=== PATIENT | female | born 1960 | race Caucasian/White ===

== ENCOUNTER → 2024-08-03 10:50 | Outpatient (REF) | payer BC, SELFPAY | LOC: WDC 10:50 | PROVIDERS: ATTENDING PHYSICIAN Obstetrics & Gynecology Gynecology; FAMILY PHYSICIAN Internal Medicine | DX: Z78.0 Asymptomatic menopausal state (principal); Z12.31 Encounter for screening mammogram for malignant neoplasm of breast | CPT/HCPCS: 77063; 77067; 77080 ==

== ENCOUNTER → 2025-07-12 15:12 | Outpatient (REF) | payer MEDICARE, OTHER, SELFPAY | LOC: WDC 15:12 | PROVIDERS: ATTENDING PHYSICIAN Internal Medicine | DX: Z12.31 Encounter for screening mammogram for malignant neoplasm of breast (principal) | CPT/HCPCS: 77063; 77067 ==